=== PATIENT | male | born 1975 | race Caucasian/White ===

== ENCOUNTER 2017-10-19 07:26 | Emergency (ER) | payer BC, SELFPAY ==
[2017-10-19 07:27] VITALS: BP 135/82; PULSE 68; RESP 16; TEMP 36.6; O2SAT 97; BMI 26.0
--- NOTE | 2017-10-19 07:40 | CT_ITS ---
STUDY: CTA OF THE BRAIN REASON FOR EXAM: Male, 42 years old. Left arm numbness and pain. RADIATION DOSAGE (If Supplied By Facility): CTDIvol = ( 31.14 ) mGy, DLP = ( 1637.35 ) mGycm TECHNIQUE: CT angiography was performed with a multi-detector CT scanner. Data acquisition was obtained from the skull base through the vertex following intravenous administration of 100 ml of Isovue-370. MIP images were reconstructed from the axial data set. Post-processing of the angiographic images was performed, with multiplanar reformation and 3D reconstruction. Individualized dose optimization techniques were used for this CT. COMPARISON: None. FINDINGS: Normal bilateral petrous carotid arteries. Normal right cavernous carotid artery with a normal supraclinoid bifurcation. Normal left cavernous carotid artery with a normal supraclinoid bifurcation. Normal right A1 segments of the anterior cerebral artery. Normal left A1 segments of the anterior cerebral artery. Normal intact anterior communicating artery (ACOM). Normal bilateral A2 segments of the anterior cerebral arteries. Normal right M1 and M2 segments of the middle cerebral arteries, with a normal M1 bifurcation. Normal left M1 and M2 segments of the middle cerebral arteries, with a normal M1 bifurcation. Normal right posterior communicating artery (PCOM). Normal left posterior communicating artery (PCOM). Normal bilateral vertebral arteries. Normal basilar artery with a normal basilar bifurcation. The visualized bilateral superior cerebellar (SCA) arteries are normal. Normal bilateral P1, P2 and visualized P3 segments of the posterior cerebral arteries. There is no demonstrated aneurysm of the [place]. There is no demonstrated abnormality of the visualized brain. CT/CTA Head W/WO Contrast IMPRESSION: Normal [place] without a demonstrated aneurysm or hemodynamically significant stenosis. Electronically Signed: Negro Ascencio MD at 9:10 EDT Tel [phone], Service support ,
--- NOTE | 2017-10-19 07:41 | CT_ITS ---
STUDY: CTA NECK WITH CONTRAST REASON FOR EXAM: Male, 42 years old. Left arm numbness and left upper arm pain. RADIATION DOSAGE (If Supplied By Facility): CTDIvol = ( 31.14 ) mGy, DLP = ( 1637.35 ) mGycm TECHNIQUE: CT angiography with multi-detector data acquisition was performed from the aortic arch to the skull base following intravenous administration of 100 ml of Isovue 370 contrast. MIP images were reconstructed from the axial data set. Post-processing of the angiographic images was performed, with multiplanar reformation and 3D reconstruction. Individualized dose optimization techniques were used for this CT. COMPARISON: None. FINDINGS: AORTIC ARCH: Normal visualized aortic arch. Normal origins of the brachiocephalic, left common carotid, and left subclavian arteries. RIGHT CAROTID ARTERIES: Normal right common carotid artery (CCA). Normal right common carotid bulb. Normal origin of the right internal carotid (ICA) artery without a hemodynamically significant stenosis. Normal visualized cervical portion of the right internal carotid artery. Normal origin of the right external carotid artery (ECA). LEFT CAROTID ARTERIES: Normal left common carotid artery (CCA). Normal left common carotid bulb. Normal origin of the left internal carotid (ICA) artery without a hemodynamically significant stenosis. Normal visualized cervical portion of the left internal carotid artery. Normal origin of the left external carotid artery (ECA). VERTEBRAL ARTERIES: Normal bilateral vertebral arteries. Normal bilateral parotid glands. Normal bilateral county coroner spaces. Normal bilateral parapharyngeal spaces. Normal bilateral carotid spaces. Normal bilateral sublingual and submandibular glands and spaces. Normal visualized nasopharynx. Normal retropharyngeal space. Normal perivertebral space. Normal visualized bilateral faucial tonsils. The visualized tongue, tongue base and oropharynx are normal. The visualized cervical lymph nodes (levels I-) are within normal size limits, and maintain normal morphology. There is no demonstrated solid or cystic mass lesion. There is no abnormal contrast enhancement. Normal epiglottis, bilateral vallecula and hypopharynx. The pre-epiglottic and paraglottic adipose spaces are normal. Normal visualized bilateral piriform sinuses, aryepiglottic folds, vocal cords, and arytenoid-cricoid articulations. Normal subglottic trachea. Normal bilateral lobes of the thyroid gland. Normal visualized pulmonary apices. There are bilateral maxillary mucous retention cysts. 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 There is patchy mucoperiosteal thickening within the ethmoid sinuses.. Degenerative changes at C6-7. CT/CTA Neck W/WO Contrast IMPRESSION: No CTA evidence for hemodynamically significant stenosis, thrombosis or dissection. Electronically Signed: Cherelle Patel MD at 9:26 EDT , Service support ,
--- NOTE | 2017-10-19 07:42 | EKG12_ITS ---
Test Reason : LEFT SIDED PAIN Blood Pressure : / mmHG Vent. Rate : 058 BPM Atrial Rate : 058 BPM P-R Int : 152 ms QRS Dur : 100 ms QT Int : 414 ms P-R-T Axes : 020 047 029 degrees QTc Int : 406 ms Sinus bradycardia Otherwise normal ECG Confirmed by AGUSTÍN RENEE, ANGEL ([id number]), department editor MORELIA GOMEZ ([id number] on 10/22/2017 1:53:52 PM Referred By: CRISTINA Confirmed By:ANGEL RANDOLPH MD
--- NOTE | 2017-10-19 07:51 | ED.DCSUM_ITS ---
- ER Visit Summary Date of Service: 10/19/17 Chief Complaint: Left upper extremity pain, numbness, tingling History of Present Illness: The patient is a 42 M who states he was at work this morning at approximately 3 hours ago developed left anterior and lateral neck pain with radiation to his chest into his left arm. He complains of a numb and tingling sensation in his left arm. He denies any specific injury prior to the onset of his symptoms. He has no posterior neck pain. He is right -hand dominant does feel his left arm is slightly weaker than normal. Past history significant for depression. He is a smoker. Physical Examination: Vital signs are unremarkable. Head and neck examination is unremarkable. There are no carotid bruits noted. He has no C-spine or paraspinal cervical tenderness. Heart is regular rate and rhythm. Lung sounds are clear. Abdomen is soft nontender. Neuro exam reveals normal strength throughout. There is decreased sensation to light touch on left versus right over the left arm and left upper chest. Strong and equal distal pulses are noted throughout. Test Results: EKG is sinus bradycardia 58 bpm. No sign of acute ischemia. CBC and chemistry studies are normal. CTA of the head and neck are normal. There is no evidence of carotid stenosis, thrombosis, or dissection. No abnormality of the soft tissues noted. Emergency Department Course and Treatment: Repeat evaluation patient is resting comfortably. He continues to have good strength throughout. I advised him at this time I do not see significant pathology related to the vasculature in his neck where he points. My belief is that he likely strained a muscle as he is having pain to the area. He will be treated with anti-inflammatories and advised to follow-up with his primary care physician if not improving. He is to return here for any worsening symptoms or concerns. Treatment Plan: [] Disposition: Discharge Impression: Neck pain with reported paresthesias This note was generated with [email or web address] dictation software. It may contain incorrect words, spelling, and punctuation that were not noted in review of the chart prior to signing ED Disposition - Plan for ED Patient: Chief Complaint: Upper Extremity Injury Referrals: Gerardo Sutton MD [Primary Care Provider] -
[2017-10-19] MEDS: 0.9% Normal Saline 1,000 ML 150 ML IV (07:58)
[2017-10-19 08:07] LABS: Absolute Lymphocyte Count 2.61 X10^3/ul (0.83-4.51); Absolute Neutrophil Count 6.5 X10^3/uL (2.0-7.7); Basophil# 0.08 X10^3/uL; Basophil% 0.8 % (0-1); Eosinophil# 0.21 X10^3/uL; Eosinophils% 2.1 % (0-5); Hematocrit 44.7 % (40-54); Hemoglobin 14.9 g/dl (13.0-16.5); Lymphocyte # 2.61 X10^3/ul (4.0); Lymphocyte % 25.7 % (19-41); Mean Corp Hgb Conc 33.3 g/gl (32-36); Mean Corpuscular Hgb 29.3 pg (27.0-32.0); Mean Platelet Vol. 9.6 fl (6.2-12.0); Monocyte# 0.74 X10^3/uL; Monocyte% 7.3 % (0-10); Neutrophil # 6.45 X10^3/uL (2.7-7.7); Neutrophil % 63.6 % (47-70); POSITIVE COUNT NO; POSITIVE DIFFERENTIAL NO; Platelet Count 205 K/mm3 (150-450); RBC Distribution Width CV 14.2 % (11.6-14.6); RBC Distribution Width SD 45.6 fl (35.1-43.9); Red Blood Count 5.08 M/mm3 (4.6-6.2); White Blood Count 10.1 K/mm3 (4.4-11.0)
[2017-10-19 08:08] LABS: POSITIVE MORPHOLOGY NO
[2017-10-19 08:21] LABS: Anion Gap 8 (5-15); BUN 13 mg/dL (7-18); BUN/Creat Ratio 15.6 RATIO (10-20); Calcium,Total 8.6 mg/dL (8.5-10.1); Chloride 104 mmol/L (98-107); Creatinine, Serum 0.83 mg/dL (0.70-1.30); EST Glomerular Filtration Rate 108 mL/min (>60); Est Glom Filt Rate - Afr Amer 131 mL/min (>60); Estimated Creatinine Clearance 118.31 ml/min; Glucose 85 mg/dL (74-106); Potassium 3.8 mmol/L (3.5-5.1); Sodium Level 138 mmol/L (136-145)
[2017-10-19 09:32] VITALS: BP 123/85; PULSE 69; RESP 14; O2SAT 99
--- NOTE | 2017-10-19 09:38 | ED.DEP ---
ED Disposition - Plan for ED Patient: Disposition: Home or Assisted Living Chief Complaint: Upper Extremity Injury Instructions: ED Paraesthesias, ED Neck Pain No Trauma Prescriptions: Naproxen [Naprosyn] 500 mg PO BID PRN #14 tablet PRN Reason: Pain Referrals: Gerardo Sutton MD [Primary Care Provider] - 1 Week
[2017-10-19 09:50] VITALS: BP 115/78; PULSE 61; RESP 18; O2SAT 99
== END 2017-10-19 09:51 | disposition home or self-care (01) ==
PROVIDERS: Emergency Provider Emergency Medicine; Family Provider Family Medicine; PCP Family Medicine
DX: M54.2 Cervicalgia (principal); R20.2 Paresthesia of skin; F32.9 Major depressive disorder, single episode, unspecified; Z72.0 Tobacco use
CPT/HCPCS: 70496; 70498; 80048; 85025; 93005; 96360; 96361; 99285; J7030; Q9967; A4216